=== PATIENT | female | born 1975 | race Caucasian/White ===

== ENCOUNTER 2022-08-15 15:19 | Inpatient (IN) | payer BC ==
[2022-08-15] MEDS: Sodium Chloride 0.9% 1,000 ML IV SCH (17:26)
[2022-08-15] MEDS: Ondansetron 4 MG/2 ML SDV IV PRN (17:29)
[2022-08-15] MEDS: Acetaminophen/HYDROcodone 325-5 MG Tab PO PRN (17:29)
[2022-08-15] MEDS: fentaNYL 100 MCG/2 ML SDV IVPUSH PRN (20:25)
[2022-08-16] MEDS: Ondansetron 4 MG/2 ML SDV IV PRN ×3 (00:14→16:03)
[2022-08-16] MEDS: fentaNYL 100 MCG/2 ML SDV IVPUSH PRN ×2 (00:32→03:15)
[2022-08-16] MEDS: Sodium Chloride 0.9% 1,000 ML IV SCH ×3 (00:34→17:08)
[2022-08-16] MEDS ORDERED: fentaNYL 100 MCG/2 ML SDV IVPUSH PRN (06:40)
[2022-08-16] MEDS: Enoxaparin 40 MG/0.4 ML Syringe SUBCUT SCH (08:27)
[2022-08-16] MEDS ORDERED: Sertraline 50 MG Tab PO SCH (09:00)
[2022-08-16] MEDS: Acetaminophen/HYDROcodone 325-5 MG Tab PO PRN ×3 (11:47→20:56)
[2022-08-17] MEDS: Acetaminophen/HYDROcodone 325-5 MG Tab PO PRN ×3 (01:28→10:17)
[2022-08-17] MEDS: Sodium Chloride 0.9% 1,000 ML IV SCH (01:30)
[2022-08-17] MEDS: Ondansetron 4 MG/2 ML SDV IV PRN (09:21)
[2022-08-17] MEDS: Enoxaparin 40 MG/0.4 ML Syringe SUBCUT SCH (09:21)
== END 2022-08-17 14:57 | disposition home or self-care (01) | DRG 282 ==
LOC: JD.MS 15:19 → JD.OB 08-16 08:50
PROVIDERS: ADMIT Internal Medicine; ATTEND Internal Medicine
DX: K85.20 Alcohol induced acute pancreatitis without necrosis or infection (principal); M19.90 Unspecified osteoarthritis, unspecified site; F17.210 Nicotine dependence, cigarettes, uncomplicated; Z78.9 Other specified health status; Z79.899 Other long term (current) drug therapy; Z88.5 Allergy status to narcotic agent; Z88.1 Allergy status to other antibiotic agents; Z86.16 Personal history of COVID-19
CPT/HCPCS: 36415; 80053; 82947; 85027; A9270-GY; J1650; J2405; J3010; J7030